=== PATIENT | male | born 1980 | race Caucasian/White ===

== ENCOUNTER 2018-04-18 10:34 | Emergency (ER) | payer OTHER ==
[2018-04-18] MEDS ORDERED: KETOROLAC 60 MG/2 ML VIAL IM STA (11:34)
[2018-04-18] MEDS ORDERED: CYCLOBENZAPRINE 10MG STARTER 3 TAB BTL PO STA (11:34)
--- NOTE | 2018-04-18 11:48 | ED ---
Fall HPI - General Chief Complaint: Fall Stated Complaint: Back/leg/arm pain-[facility] Time Seen by Provider: 04/18/18 11:03 Source: patient, RN notes reviewed, old records reviewed Mode of arrival: ambulatory - History of Present Illness Initial Comments: Patient is a 37-year-old male presents return today after an injury at work. Patient ports that he was lifted up on a harness. He reports that when he was up in the harness at work the platform fell underneath him. He fell and he was dangling for approximately 20 minutes with his legs from a harness. He complains of leg pain, left arm pain and lower back pain. Patient states of the left leg pain seems to be the worse. Patient denies any peripheral paresthesias. He is concerned with hanging there is possibility of blood clots. Patient states that he has no chest pain or shortness of breath. - Related Data Previous Rx's Medication Instructions Recorded Cyclobenzaprine [Flexeril] 10 mg PO TID #20 tab 04/18/18 Ibuprofen 600 mg PO TID #20 tablet 04/18/18 Allergies Allergy/AdvReac Type Severity Reaction Status Date / Time No Known Allergies Allergy Verified 04/18/18 11:37 Review of Systems ROS Statement: Those systems with pertinent positive or pertinent negative responses have been documented in the HPI. ROS Other: All systems not noted in ROS Statement are negative. Past Medical History Past Medical History: No Reported History Past Surgical History: No Surgical Hx Reported Past Psychological History: ADD/ADHD Smoking Status: Former smoker Past Alcohol Use History: Daily Past Drug Use History: None Reported General Exam Limitations: no limitations General appearance: alert, in no apparent distress Head exam: Present: atraumatic, normocephalic, normal inspection Eye exam: Present: normal appearance, PERRL, EOMI. Absent: scleral icterus, conjunctival injection, periorbital swelling ENT exam: Present: normal exam Neck exam: Present: normal inspection. Absent: tenderness, meningismus, lymphadenopathy Respiratory exam: Present: normal lung sounds bilaterally. Absent: respiratory distress, wheezes, rales, rhonchi, stridor Cardiovascular Exam: Present: regular rate, normal rhythm, normal heart sounds. Absent: systolic murmur, diastolic murmur, rubs, gallop, clicks GI/Abdominal exam: Present: soft, normal bowel sounds. Absent: distended, tenderness, guarding, rebound, rigid Extremities exam: Present: normal inspection, full ROM, normal capillary refill. Absent: tenderness, pedal edema, joint swelling, calf tenderness Back exam: Present: normal inspection Neurological exam: Present: alert, oriented X3, CN II-XII intact Psychiatric exam: Present: normal affect, normal mood Skin exam: Present: warm Course Vital Signs 04/18/18 10:41 Temperature 98.6 F Pulse Rate 81 Respiratory 99 H Rate Blood Pressure 143/88 O2 Sat by Pulse 98 Oximetry Medical Decision Making - Radiology Data Radiology results: report reviewed Acute fracture dislocation within the left knee. Left leg is negative for DVT. Acute fracture dislocation lumbar spine. Disposition Clinical Impression: Fall, Muscle strain of left lower extremity, Strain of left biceps, Back pain Disposition: HOME SELF-CARE Condition: Good Instructions (If sedation given, give patient instructions): Muscle Strain (ED) , Back Pain (ED) Additional Instructions: Patient is advised him close follow-up with primary care physician. Patient should return to the emergency department if any alarming signs or symptoms occur. Should apply warm compresses or ice over the areas. Prescriptions: Cyclobenzaprine [Flexeril] 10 mg PO TID #20 tab Ibuprofen 600 mg PO TID #20 tablet Is patient prescribed a controlled substance at d/c from ED?: No Referrals: None,Stated [Primary Care Provider] - 1-2 days Tomasa Olmos MD [STAFF PHYSICIAN] - 1-2 days Time of Disposition: 13:40
--- NOTE | 2018-04-18 12:34 | US ---
EXAMINATION TYPE: US venous doppler duplex LE LT DATE OF EXAM: 04/18/2018 12:18 PM COMPARISON: NONE CLINICAL HISTORY: Pain. patient suspended from harness for 17 mins, left leg and back pain, no h/o dv t SIDE PERFORMED: Left TECHNIQUE: The lower extremity deep venous system is examined utilizing real time linear array sonog chelita with graded compression, doppler sonography and color-flow sonography. VESSELS IMAGED: External Iliac Vein (EIV) Common Femoral Vein Deep Femoral Vein Greater Saphenous Vein * Femoral Vein Popliteal Vein Small Saphenous Vein * Proximal Calf Veins (* superficial vessels) Grayscale, color doppler, spectral doppler imaging performed of the deep veins of the left lower extr emity. There is normal flow, compressibility, vascular waveforms. Left Leg: Appears negative for DVT IMPRESSION: No sonographic evidence of deep venous thrombosis within the left lower extremity.
--- NOTE | 2018-04-18 13:34 | XR ---
EXAMINATION TYPE: XR knee complete LT DATE OF EXAM: 04/18/2018 CLINICAL HISTORY: Left knee pain after a fall TECHNIQUE: Three views of the left knee are obtained. COMPARISON: None. FINDINGS: There is no acute fracture/dislocation evident in left knee. The tri-compartment joint sp aces appear within normal limits. The overlying soft tissue appears unremarkable. IMPRESSION: There is no acute fracture or dislocation in the left knee.
--- NOTE | 2018-04-18 13:35 | XR ---
EXAMINATION TYPE: XR lumbar spine 2 or 3V DATE OF EXAM: 04/18/2018 CLINICAL HISTORY: Back pain in left knee pain TECHNIQUE: Frontal and lateral images of the lumbar spine are obtained. COMPARISON: None FINDINGS: There are 5 lumbar type vertebral bodies identified. The lumbar spine shows satisfactory alignment without evidence of acute fracture or dislocation. Vertebral body heights and disk space he ights are within normal limits. The overlying soft tissue appears unremarkable. IMPRESSION: No acute fracture or dislocation is seen in the lumbar spine.
[2018-04-18 14:06] VITALS: RESP 18
[2018-04-18 14:07] VITALS: BP 132/92; PULSE 74; TEMP 99.5
== END 2018-04-18 14:06 | disposition home or self-care (01) ==
LOC: EC 10:34
DX: S86.912A Strain of unspecified muscle(s) and tendon(s) at lower leg level, left leg, initial encounter (principal); M54.5 Low back pain; S46.212A Strain of muscle, fascia and tendon of other parts of biceps, left arm, initial encounter; Z87.891 Personal history of nicotine dependence; W20.8XXA Other cause of strike by thrown, projected or falling object, initial encounter; Y92.69 Other specified industrial and construction area as the place of occurrence of the external cause; Y93.89 Activity, other specified; Y99.0 Civilian activity done for income or pay
CPT/HCPCS: 72100; 73562; 93971; 99284; 96372; J1885